=== PATIENT | male | born 1940 | race Caucasian/White ===

== ENCOUNTER → 2019-05-28 12:27 | Outpatient (CLI) | payer OTHER, SELFPAY ==
[2019-05-28 12:40] VITALS: BP 154/72; PULSE 56; RESP 18; TEMP 35.9; O2SAT 98
--- NOTE | 2019-05-28 12:40 | PDOC.PAIN ---
Pain Clinic Procedure Note Procedure Note Procedure Note: Lumbar Epidural Steroid Injection Procedure Note Pre-operative diagnosis: lumbar radiculopathy Post-operative diagnosis: same as above Comment: patient has been evaluated by Ms Marlen Odom APRN with regard to his chronic back pain. 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 He has 12 month follow up with Dr Vargas. He is here for a trial of lumbar epidural steroid injections for sympatomic relief of his back pain. He could not tolerate Gabapentin due to side effects that made him unsteady. Larry Rangel has been referred to the [facility] for lumbar epidural steroid injection. The patient was greeted by the nurse who verified patients name and . Patient was then taken to the fluoroscopy suite. The patient was interviewed and the medial record reviewed. There were no medical, pharmacologic, radiographic, or other structural contraindications to attempting fluoroscopically guided lumbar epidural steroid injection. Risks and expected side effects as well as potential benefits of the procedure were reviewed and voiced concerns expressed. The patient consent form was signed and witnessed. Standard patient time-out procedure was performed. The patient was placed in the prone position on the fluoroscopy table and automated blood pressure cuff and pulse oximeter applied. The skin entry point for entering/approaching the epidural space by a L5-S1 and marked. Following thorough chlorhexadine preparation of the skin and draping and 1% lidocaine infiltration of the skin entry point and subcutaneous tissues, a 18 gauge Touhy needle was placed under fluoroscopic guidance and with loss of resistance technique into the epidural space. Needle tip placement and depth were aided and confirmed by fluoroscopy. There was no paresthesia or return of blood or CSF through the needle. 1 cc's of Omnipaque 240 was injected with clear epidural spread confirmed with fluoroscopy. 15mg of preseravtive free dexamethasone was injected. There was not any unusual discomfort expressed by Larry Rangel. Patient's vital signs were stable throughout the procedure and were as recorded in nursing records. Follow up plans and appointments were discussed with patient. Post procedure instruction was given as documented in nursing records and having met discharge criteria and was discharged from the [facility]. COMMENTS: If this procedure is helpful, it can be completed up to 3 times per 12 months. I personally performed the entire procedure. Mary Montalvo MD Pain Management
--- NOTE | 2019-05-28 13:15 | DI.RAD_ITS ---
EXAM: XR PAIN CLINIC LUMBAR SP 2V CLINICAL HISTORY: dx: Lumbar Radiculopathy TECHNIQUE: 2D and realtime digital imaging was performed. CONTRAST MATERIAL: Refer to procedure report. COMPARISON: No exams were available for comparison FINDINGS: Fluoroscopy was provided for Dr. Montalvo during the performance of a lumbar epidural steroid injection. Please refer to the procedure report for complete details. Fluoro time: 14.9 seconds IMPRESSION:
[2019-05-28 13:27] VITALS: BP 172/68; PULSE 61; RESP 16; O2SAT 95
[2019-05-28] MEDS: Dexamethasone Sod. Phos./Pres-Free 10 MG/ML VIAL IJ (13:27)
[2019-05-28] MEDS: Omnipaque 240 MG/ML 50 ML BTL IJ (13:27)
== END ==
PROVIDERS: PCP Internal Medicine; Visit Provider Internal Medicine
DX: M54.16 Radiculopathy, lumbar region (principal)
CPT/HCPCS: 62323; 72100; Q9967